=== PATIENT | female | born 2005 | race Caucasian/White ===

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

== ENCOUNTER 2023-05-11 08:43 | Emergency (ER) | payer BC, SELFPAY ==
[~2023-05-11] VITALS: Ht 175.3 cm; Wt 102.2 kg
[2023-05-11] MEDS ORDERED: LIDOCAINE W/EPINEPHRINE 1% 20ML VIAL INFIL ONE (09:25)
[2023-05-11 10:10] VITALS: BP 129/87; TEMP 98.1; O2SAT 100
== END 2023-05-11 10:12 | disposition home or self-care (01) ==
LOC: M ED 08:43
DX: S01.01XA Laceration without foreign body of scalp, initial encounter (principal); Y92.009 Unspecified place in unspecified non-institutional (private) residence as the place of occurrence of the external cause; W01.10XA Fall on same level from slipping, tripping and stumbling with subsequent striking against unspecified object, initial encounter; Y93.9 Activity, unspecified; Y99.8 Other external cause status

== ENCOUNTER 2023-12-31 11:58 | Emergency (ER) | payer OTHER, BC ==
[~2023-12-31] VITALS: Ht 175.3 cm; Wt 103.0 kg
[2023-12-31] MEDS: ACETAMINOPHEN TAB 650MG DOSE (2X325MG) PO ONE (15:39)
[2023-12-31] MEDS: ONDANSETRON 4MG ORAL DISINTEGRATING TAB PO ONE (18:05)
[2023-12-31] MEDS: IBUPROFEN 600MG TAB PO ONE (18:05)
[2023-12-31 18:47] VITALS: BP 135/83; TEMP 97.7; O2SAT 100
== END 2023-12-31 18:48 | disposition home or self-care (01) ==
LOC: M ED 11:58
DX: S06.0X9A Concussion with loss of consciousness of unspecified duration, initial encounter (principal); Y92.9 Unspecified place or not applicable; Y93.9 Activity, unspecified; Y99.0 Civilian activity done for income or pay; W22.09XA Striking against other stationary object, initial encounter

== ENCOUNTER → 2024-07-02 | Outpatient (REF) | payer BC ==
[2024-07-02 16:54] LABS: AMORPHOUS SEDIMENT MODERATE (NEGATIVE); APPEARANCE, URINE TURBID (CLEAR); BACTERIA, URINE AUTO NEGATIVE (NEGATIVE); BILIRUBIN, URINE AUTO NEGATIVE (NEGATIVE); BLOOD, URINE BLOOD NEGATIVE (NEGATIVE); COLOR, URINE AMBER (YELLOW); GLUCOSE, URINE (UA) AUTO NEGATIVE (NEGATIVE); KETONE, URINE AUTO NEGATIVE (NEGATIVE); LEUKOCYTE ESTERASE, URINE AUTO NEGATIVE (NEGATIVE); MUCUS, URINE SMALL (NEGATIVE); NITRITE, URINE AUTO NEGATIVE (NEGATIVE); PROTEIN, URINE AUTO 1+ mg/dL (NEGATIVE); RBC, URINE AUTO 2 /HPF (0-3); SPECIFIC GRAVITY URINE AUTO 1.023 (1.002-1.035); SQUAMOUS EPITHELIAL CELL UR AU 22 /HPF (0-6); WBC, URINE AUTO 1 /HPF (0-3)
[2024-07-02 18:22] LABS: GC DNA AMPLIFICATION NEGATIVE (NEGATIVE)
== END ==
LOC: M LAB REF 16:27
PROVIDERS: ATTEND Nurse Practitioner Family
DX: Z72.51 High risk heterosexual behavior (principal)

== ENCOUNTER → 2024-09-09 | Outpatient (REF) | payer BC | LOC: M LAB REF 12:14 | PROVIDERS: ATTEND Nurse Practitioner Family | DX: L73.2 Hidradenitis suppurativa (principal) ==

== ENCOUNTER → 2025-05-13 | Outpatient (REF) | payer BC ==
[2025-05-13 13:13] LABS: PROLACTIN 8.01 NG/ML
[2025-05-13 13:14] LABS: CORTISOL AM 15.4 UG/DL (4.3-22.4)
[2025-05-15 03:27] LABS: DEHYDROEPIANDROSTERONE SULFATE 200 mcg/dL (44-286)
== END ==
LOC: M LAB REF 12:25
PROVIDERS: ATTEND Nurse Practitioner Family
DX: E28.2 Polycystic ovarian syndrome (principal)